=== PATIENT | female | born 1965 | race Caucasian/White ===

== ENCOUNTER 2018-07-15 01:09 | Outpatient (CLI) | payer BC, SELFPAY ==
[2018-07-15 13:35] LABS: CREATININE 0.52 mg/dL (0.55-1.02)
[2018-07-15] MEDS: Omnipaque 350 MG/ML 100 ML BTL IJ (13:54)
--- NOTE | 2018-07-15 13:55 | DI.CT_ITS ---
SYMPTOMS/DIAGNOSIS: BONY PROMINENCE TO BILATERAL FACIAL CREASE, SKIN CHANGES, FACIAL MASS, R22.0 CT SCAN OF THE FACE: CT scan of the face was performed following the uneventful administration of intravenous contrast material. A marker was placed on the right side of the nose in the area of palpable concern. Deep to the marker there is mild skin thickening and increased density. There is no enhancing mass. No focal enhancing mass is identified. The underlying facial bones have a normal appearance. No evidence of an osseous mass, lytic or sclerotic lesion is seen. No osseous erosions are seen to suggest an inflammatory or infectious process. No acute fracture or dislocation is appreciated. The nasal septum mildly deviates to the left. There is a nasoseptal spur projecting from the left aspect of the septum. The turbinates and ostiomeatal complexes are unremarkable. The visualized paranasal sinuses are clear. No fluid levels or soft tissue masses are seen. The mastoid air cells are well pneumatized. The orbits and retro-orbital soft tissues are grossly unremarkable. The visualized intracranial structures show no acute abnormality. IMPRESSION: Focal soft tissue and skin thickening on the right aspect of the nose corresponding to the palpable abnormality. No focal mass or underlying osseous abnormality is identified. The findings are nonspecific. Inflammatory or infectious process should be considered. Biopsy may be considered for further evaluation if clinically appropriate.
== END 2018-07-15 01:29 ==
PROVIDERS: PCP Nurse Practitioner Family; Visit Provider Physician Assistant
DX: R22.0 Localized swelling, mass and lump, head (principal); R23.4 Changes in skin texture; Z01.812 Encounter for preprocedural laboratory examination
CPT/HCPCS: 36415; 70487; 82565; J3490

== ENCOUNTER 2019-01-02 11:40 | Outpatient (REF) | payer BC, SELFPAY ==
[2019-01-02 18:15] LABS: Abs Immature Grans 0.02 k/cumm (0.0-0.09); Absolute Basophil Count 0.01 k/cumm (0.0-0.2); Absolute Eosinophil Count 0.04 k/cumm (0.0-0.7); Absolute Lymphocyte Count 0.67 k/cumm (1.2-3.4); Absolute Monocyte Count 0.42 k/cumm (0.11-0.7); Absolute Neutrophil Count 3.56 k/cumm (1.2-6.7); Basophils % 0.2; Eosinophils % 0.8; HCT 36.3 % (36.0-46.0); HGB 11.7 g/dL (12.0-15.5); Immature Grans % 0.4; Lymphocytes % 14.2; Mean Corp. HGB Concentration 32.2 g/dL (32.0-36.0); Mean Corpuscular Hemoglobin 27.2 pg (27.0-33.0); Mean Corpuscular Volume 84.4 fL (80-95); Mean Platelet Volume 9.9 fL (8.0-11.0); Monocytes % 8.9; Neutrophils % 75.5; Platelet Count 289 x1000/uL (130-400); RBC Distribution Width 12.7 % (11.7-14.6); White Blood Cell Count 4.72 k/cumm (4.4-10.8)
[2019-01-02 18:28] LABS: ALT 17 U/L (12-78); AST 18 U/L (15-37); Albumin 3.6 g/dL (3.4-5.0); Alkaline Phosphatase 115 U/L (46-116); Anion Gap 8.2 mmol/L (3-11); BUN 7 mg/dL (7-18); Bilirubin, Total 0.2 mg/dL (0.2-1.0); CO2 29.8 mmol/L (21.0-32.0); CREATININE 0.57 mg/dL (0.55-1.02); Calcium 9.3 mg/dL (8.5-10.1); Chloride 94 mmol/L (98-107); Glucose 103 mg/dL (70-100); PHENOBARBITAL 20.9 ug/mL (15.0-40.0); Potassium 3.4 mmol/L (3.5-5.1); Sodium 132 mmol/L (136-145); Total Protein 7.2 g/dL (6.4-8.2)
== END 2019-01-02 12:00 ==
LOC: NCHCN 11:40
PROVIDERS: PCP Nurse Practitioner Family; Visit Provider Nurse Practitioner Family
DX: G40.209 Localization-related (focal) (partial) symptomatic epilepsy and epileptic syndromes with complex partial seizures, not intractable, without status epilepticus (principal); Z51.81 Encounter for therapeutic drug level monitoring; Z79.899 Other long term (current) drug therapy
CPT/HCPCS: 80053; 80156; 80184; 85025

== ENCOUNTER 2019-02-27 00:56 | Outpatient (CLI) | payer BC, SELFPAY ==
--- NOTE | 2019-02-27 09:20 | DI.MAMMO_ITS ---
SYMPTOM/DIAGNOSIS: SCREENING, PREVENTIVE HEALTH, Z00.00 MAMMOGRAMS: Mammograms were interpreted according to the usual protocol including computer analysis with CAD system, tomosynthesis and C view imaging. Comparison is made with exams from [id number]. The breasts are composed of fatty density tissue, breast density, Category A. No suspicious masses or suspicious microcalcifications are seen. There has been no significant change. IMPRESSION: Category 1, negative mammogram. Yearly screening mammography is recommended. [facility] ASSESSMENT OF FINDINGS: Negative. Category 1. Patient will receive a letter notifying them of these results. BI-RAD category A. The breasts are almost entirely fatty.
== END 2019-02-27 01:16 ==
PROVIDERS: PCP Nurse Practitioner Family; Visit Provider Nurse Practitioner Family
DX: Z00.00 Encounter for general adult medical examination without abnormal findings (principal); Z12.31 Encounter for screening mammogram for malignant neoplasm of breast
CPT/HCPCS: 77063; 77067

== ENCOUNTER 2020-02-01 09:44 | Outpatient (REF) | payer BC, SELFPAY ==
[2020-02-01 17:11] LABS: PROTEIN 7.2 mg/dL
[2020-02-01 17:14] LABS: COMMENT (LAB VIEW ONLY) 26.25 mg/dL; Microalb ug/mg Crea 20.2 ug/mg Cr
[2020-02-01 17:30] LABS: COMMENT (LAB VIEW ONLY) 27.32 mg/dL; Prot/Crea Ur Ratio 0.26
== END 2020-02-01 10:04 ==
LOC: NCHCN 09:44
PROVIDERS: PCP Nurse Practitioner Family; Visit Provider Nurse Practitioner Family
DX: I10 Essential (primary) hypertension (principal)
CPT/HCPCS: 82043; 82565; 82570; 84156

== ENCOUNTER 2021-01-06 10:52 | Outpatient (REF) | payer BC, SELFPAY ==
--- NOTE | 2021-01-06 10:00 | PAPFT_PTH ---
PATIENT: Ashley Pak LOC: [facility]#:[id number] AGE/SX: 55/F ROOM: RE01/06/[address]: Rudi Helms : 1965 BED: DIS: 01/06/2021 SPEC #: [id number] RECD: 01/06/21 17:48 STATUS: ZULEIKA REAdolph #: [id number] LINETTE: 01/06/21 10:[address]: Rudi Helms DEPT: [facility] Cytology RECD BY: Roseline Dyson Tissues: 1 - CX/ENDOCX FOR PAP SMEARS Procedures: PAP THIN PREP/[facility] Screening Comments: [id number]
[2021-01-06 17:05] LABS: ALT 15 U/L (14-59); AST 15 U/L (15-37); Albumin 4.3 g/dL (3.4-5.0); Alkaline Phosphatase 108 U/L (46-116); Anion Gap 7.3 mmol/L (3-11); BUN 11 mg/dL (7-18); Bilirubin, Total 0.2 mg/dL (0.2-1.0); CO2 30.7 mmol/L (21.0-32.0); CREATININE 0.7 mg/dL (0.55-1.02); Chloride 95 mmol/L (98-107); Glucose 97 mg/dL (74-106); PHENOBARBITAL 21.6 ug/mL (15.0-40.0); Potassium 3.6 mmol/L (3.5-5.1); Sodium 133 mmol/L (136-145); TROPONIN-I 6.7 ug/mL (4.0-12.0); Total Protein 7.3 g/dL (6.4-8.2)
== END 2021-01-06 10:53 | disposition home or self-care (01) ==
LOC: NCHCN 10:52
PROVIDERS: PCP Nurse Practitioner Family; Visit Provider Nurse Practitioner Family
DX: Z12.4 Encounter for screening for malignant neoplasm of cervix (principal); I10 Essential (primary) hypertension; E78.5 Hyperlipidemia, unspecified; L93.1 Subacute cutaneous lupus erythematosus; Z51.81 Encounter for therapeutic drug level monitoring; Z79.899 Other long term (current) drug therapy; Z00.00 Encounter for general adult medical examination without abnormal findings
CPT/HCPCS: 80053; 88142; 80156; 80184

== ENCOUNTER 2021-02-27 00:53 | Outpatient (CLI) | payer BC, SELFPAY ==
--- NOTE | 2021-02-27 08:35 | DI.MAMMO_ITS ---
Exam(s) MAMMO SCREENING EXAM: MAMMO SCREENING CLINICAL HISTORY: SCREENING, Z12.39. TECHNIQUE: Bilateral full field digital CC and MLO mammographic images were obtained with 3D tomosyn thesis and utilizing computer aided detection (CAD). COMPARISON: Prior mammograms dating back to 2010, the most recent being . FINDINGS: Asymmetric density in the right breast is unchanged from prior studies. There are no new spiculated masses nor malignant appearing microcalcification groups. There is no significant architectural distortion nor skin thickening-retraction. IMPRESSION: No radiographic evidence of malignancy. BI-RADS Category 1 - Negative Breast Density - Category A - Almost entirely fatty Breast density Category C or D implies that the patient has dense breast tissue. Dense breast tissue can make it harder to find cancer on a mammogram. Dense breast tissue is also associated with an incr eased risk of breast cancer. This information about the result of the mammogram report was provided to the patient to raise their awareness. Use this report when you speak with the patient about their risks for breast cancer, which includes their family history. At that time, you may recommend additional screening tests (Ultrasoun d or MRI) as these tests may add significant information. A negative radiographic report should not delay biopsy if a dominant or clinically suspicious mass is present. Up to ten percent of cancers are not identified on mammography. A negative report may reinforce clinical impression. Adenosis and dense breasts may obscure an underlying neoplasm. False positive reports average 6 to 10%. Patient will receive a letter notifying them of these results.
== END 2021-02-27 01:13 ==
PROVIDERS: PCP Nurse Practitioner Family; Visit Provider Nurse Practitioner Family
DX: Z12.31 Encounter for screening mammogram for malignant neoplasm of breast (principal)
CPT/HCPCS: 77063; 77067

== ENCOUNTER → 2022-07-10 11:06 | Outpatient (CLI) | payer BC, SELFPAY ==
--- NOTE | 2022-07-10 | DI.RAD_ITS ---
Exam(s) XR KNEE RT 3V AP,LAT,STEVE EXAM: XR KNEE RT 3V AP,LAT,STEVE CLINICAL HISTORY: PAIN IN RIGHT KNEE--M25.561...TWISTING MOTION INJURY. TECHNIQUE: 2D digital imaging was performed of the right knee. Three views obtained. AP, lateral an d PA tunnel views were obtained. COMPARISON: No exams were available for comparison FINDINGS: BONES: No acute fracture is present. No bony destructive lesion is seen. JOINTS: There are marked degenerative changes in the right knee involving all 3 joint compartments. The findings are most marked in the lateral femoral and patellofemoral joints. There is joint space narrowing and periarticular spurring present. There is a moderate joint effusion. SOFT TISSUE: Normal. IMPRESSION: 1. No acute fracture or dislocation. 2. Moderate joint effusion. 3. Marked osteoarthritis. DATA REPOSITORY: RADIATION DOSE DELIVERED:
== END ==
PROVIDERS: Visit Provider Physician Assistant Medical
DX: M25.461 Effusion, right knee; M16.11 Unilateral primary osteoarthritis, right hip
CPT/HCPCS: 73562

== ENCOUNTER → 2023-06-23 00:51 | Outpatient (CLI) | payer BC, SELFPAY ==
--- NOTE | 2023-06-23 15:23 | DI.MAMMO_ITS ---
Exam(s) MAMMO SCREENING EXAM: MAMMO SCREENING CLINICAL HISTORY: SCREENING EXAM FOR BREAST CANCER Z12.39 TECHNIQUE: Mammograms were interpreted according to the usual protocol including computer analysis w [employer] CAD system, tomosynthesis and C-view imaging. COMPARISON: 2013 through 2020 FINDINGS: The breasts are composed of mainly fatty density , Breast Density category A. No suspicious masses or suspicious microcalcifications are seen. Area of nodularity in the subareola r right breast appears unchanged from prior exams. No skin thickening or abnormal axillary lymph nodes are seen. There has been no significant change from prior exams. IMPRESSION: BI-RADS Cat 2 - Benign Findings Yearly screening mammography is recommended. Breast Density - Category A, fatty density. A negative radiographic report should not delay biopsy if a dominant or clinically suspicious mass is present. Up to ten percent of cancers are not identified on mammography. A negative report may reinforce clinical impression. Adenosis and dense breasts may obscure an underlying neoplasm. False positive reports average 6 to 10%. Patient will receive a letter notifying them of these results.
== END ==
PROVIDERS: Visit Provider Nurse Practitioner Family
DX: Z12.31 Encounter for screening mammogram for malignant neoplasm of breast (principal)
CPT/HCPCS: 77063; 77067

== ENCOUNTER 2025-03-20 15:48 | Outpatient (REF) | payer BC, SELFPAY ==
[2025-03-20 17:03] LABS: ALT 17 U/L (14-59); AST 11 U/L (15-37); Albumin 4.1 g/dL (3.4-5.0); Alkaline Phosphatase 110 U/L (46-116); Anion Gap 6.6 mmol/L (3-11); BUN 9 mg/dL (7-18); Bilirubin, Total 0.3 mg/dL (0.2-1.0); CO2 32.4 mmol/L (21.0-32.0); Calcium 9.4 mg/dL (8.5-10.1); Calculated LDL 127 mg/dL (<100); Chloride 93 mmol/L (98-107); Cholesterol 230 mg/dL (<200); Estimated GFR 105.98 (mL/min/1.73m2); Glucose 95 mg/dL (74-106); HDL Cholesterol 91 mg/dL (>or=50); Magnesium 2.0 mg/dL (1.8-2.4); Potassium 3.2 mmol/L (3.5-5.1); Sodium 132 mmol/L (136-145); Total Protein 7.4 g/dL (6.4-8.2); Triglyceride 60 mg/dL (<150)
== END 2025-03-20 15:49 | disposition home or self-care (01) ==
LOC: NCHCN 15:48
PROVIDERS: Visit Provider Student in an Organized Health Care Education/Training Program
DX: Z13.220 Encounter for screening for lipoid disorders (principal); I10 Essential (primary) hypertension
CPT/HCPCS: 80053; 80061; 83735

== ENCOUNTER 2025-04-24 14:36 | Outpatient (CLI) | payer BC, SELFPAY ==
--- NOTE | 2025-04-24 | DI.MAMMO_ITS ---
Exam(s) MAMMO SCREENING EXAM: MAMMO SCREENING CLINICAL HISTORY: SCREENING MAMMO Z12.31, -ROS FOR BREAST CANCER TECHNIQUE: Bilateral full field digital CC and MLO mammographic images were obtained with 3D tomosynthesis and utilizing computer aided detection (CAD). COMPARISON: Comparison is made with prior examinations. FINDINGS: Masses/Architectural Distortion: No suspicious masses or areas of architectural distortion are present. There is a stable right retroareolar asymmetric density. Microcalcifications: No suspicious pleomorphic-type are seen. Skin Thickening/Nipple Retraction: None. IMPRESSION: 1. No significant interval change with no specific features of malignancy noted. 2. Unless there is more urgent need, screening mammography is recommended, as per [place] [employer] guidelines. BI-RADS Category 2 - Benign Findings Breast Density - Category A - The breast are almost entirely fatty. Breast density Category C or D implies that the patient has dense breast tissue. Dense breast tissue can make it harder to find cancer on a mammogram. Dense breast tissue is also associated with an increased risk of breast cancer. This information about the result of the mammogram report was provided to the patient to raise their awareness. Use this report when you speak with the patient about their risks for breast cancer, which includes their family history. At that time, you may recommend additional screening tests (Ultrasound or MRI) as these tests may add significant information. A negative radiographic report should not delay biopsy if a dominant or clinically suspicious mass is present. Up to ten percent of cancers are not identified on mammography. A negative report may reinforce clinical impression. Adenosis and dense breasts may obscure an underlying neoplasm. False positive reports average 6 to 10%. Patient will receive a letter notifying them of these results.
== END 2025-04-24 14:56 ==
PROVIDERS: Visit Provider Student in an Organized Health Care Education/Training Program
DX: Z12.31 Encounter for screening mammogram for malignant neoplasm of breast (principal); R92.313 Mammographic fatty tissue density, bilateral breasts
CPT/HCPCS: 77063; 77067